=== PATIENT | female | born 1945 | race Caucasian/White ===

== ENCOUNTER → 2020-07-22 | Outpatient (CLI) | payer MEDICARE ==
[2016-01-28 08:41] VITALS: BP 151/72
[~2020-07-22] MED LIST: ACET325T9 PO; ACET500T68 PO; AMLO-186 PO; AMLO2.5T5 PO; BUPR150T11 PO; Bisacodyl PR; FAMO20TA5 PO; HYDR100E2 PR; HYDR12.58 PO; HYDR200T5 PO; IPRA3AMP29 NEB; L. R1CAP2 PO; LISI10TA16 PO; MAGN400T22 PO; MULT1TAB11 PO; OMEP40CA2 PO; ONDA4TAB10 SL; ONDA4TAB12 PO; ONDA4VIA56 IV; OXYB5TAB10 PO; OXYC1TAB15 PO; PRED5TAB19 PO; SERT-269 PO; SULF500T PO; [UNRECOGNIZED DRUG - CODE] IV; bupropion; hydrochlorothiazide; sertraline
--- NOTE | 2020-07-22 15:17 | RAD ---
INDICATION: Reason: EPIGASTRIC PAIN, HX OF OVARIAN AND ENDOMETRIAL CA / Spl. Instructions: / History : . COMPARISON: November 2015 TECHNIQUE: Axial CT images obtained through the abdomen and pelvis without contrast. One or more of the following individualized dose reduction techniques were utilized for this examinat ion: 1. Automated exposure control; 2. Adjustment of the mA and/or kV according to patient size; 3 . Use of iterative reconstruction technique. FINDINGS: Groundglass opacities at lung bases. Moderate hiatal hernia. Scattered calcific atherosclerosis. Postcholecystectomy changes without intrahepatic bile duct dilation. Fat-containing anterior abdominal wall hernia. Adjacent postoperative changes. No peripancreatic fluid collection. Spleen is prominent in size with lobulated appearance. Mild nodular thickening of a left adrenal gland measuring up to 7 mm. No left-sided hydronephrosis. Urinary bladder is decompressed with indistinctness of adjacent fat. No right-sided hydronephrosis. There is some prominence of the distal sigmoid wall. Colonic diverticulosis. Postoperative changes to the bowel with suture line. Degenerative changes the spine with scoliotic curvature and multilevel central canal and neural wyatt inal stenosis. Osseous demineralization. IMPRESSION: * Urinary bladder is decompressed with some prominence the wall indistinctness of adjacent fat. Coul d be from posttreatment changes but would correlate with symptoms to ensure that there is not a super imposed acute cause such as cystitis. * Mild groundglass opacities at lung bases could be secondary to atelectasis with other possible cau ses including infectious etiology or mild edema. * Mild prominence of the sigmoid colon wall. Could be posttreatment related. * Moderate hiatal hernia. Electronically signed by: Zackery Watts MD (07/22/2020 3:15 PM) [id number]
== END ==
LOC: CT 13:57
PROVIDERS: ATTEND Family Medicine
DX: K44.9 Diaphragmatic hernia without obstruction or gangrene (principal); K57.30 Diverticulosis of large intestine without perforation or abscess without bleeding; Z85.43 Personal history of malignant neoplasm of ovary
CPT/HCPCS: 74176

== ENCOUNTER → 2021-05-19 | Outpatient (CLI) | payer MEDICARE ==
[2016-01-28 08:41] VITALS: BP 151/72
[~2021-05-19] MED LIST changes: +IOHEXOL 240 MG/ML 50ML VIAL. ONE; +IOHEXOL 240 MG/ML 50ML VIAL. PO ONE; +IOHEXOL 300 MG/ML 75 ML VIAL. IV ONE
[2021-05-19 13:32] LABS: BASO % 1 % (0-3); EOS # 0.1 x10^3/uL (0.0-0.7); EOS % 1 % (0-3); HEMATOCRIT 38.2 % (36.0-47.0); HEMOGLOBIN 12.5 g/dL (12.0-15.5); LYMPH # 1.2 x10^3/uL (1.0-4.8); LYMPH % 20 % (24-48); MEAN CORPUSCULAR HEMOGLOBIN 30 pg (25-35); MEAN CORPUSCULAR HGB CONC 33 g/dL (31-37); MEAN CORPUSCULAR VOLUME 91 fL (79-100); MONO # 0.5 x10^3/uL (0.0-1.1); MONO % 9 % (0-9); NEUT # 4.3 x10^3uL (1.8-7.7); NEUT % 69 % (31-73); PLATELET COUNT 275 x10^3/uL (140-400); RED BLOOD COUNT 4.21 x10^6/uL (3.50-5.40); WHITE BLOOD COUNT 6.2 x10^3/uL (4.0-11.0)
[2021-05-19 13:48] LABS: ALBUMIN 3.8 g/dL (3.4-5.0); ALBUMIN/GLOBULIN RATIO 1.1 (1.0-1.7); CALCIUM 8.9 mg/dL (8.5-10.1); CREATININE 1.3 mg/dL (0.6-1.0); POTASSIUM 3.8 mmol/L (3.5-5.1); TOTAL BILIRUBIN 0.4 mg/dL (0.2-1.0); TOTAL PROTEIN 7.2 g/dL (6.4-8.2)
--- NOTE | 2021-05-19 17:04 | RAD ---
PQRS Compliance Statement: One or more of the following individualized dose reduction techniques were utilized for this examinat ion: 1. Automated exposure control 2. Adjustment of the mA and/or kV according to patient size 3. Use of iterative reconstruction technique CT ABDOMEN+PELVIS W Clinical Indication: Reason: VAGINAL BLEEDING, HX OF OVARIAN CA / Spl. Instructions: ORAL AND IV OMNI 300 60ML HX OF MALIGNANT NEOPLASM OF ENDOMETRIUM / History: Comparison: CT abdomen and pelvis without contrast July 22, 2020. Technique: Helical CT imaging of the abdomen and pelvis is performed after 60 cc of Omnipaque 300 IV contrast. Oral contrast also administered. Findings: Lung bases are clear. Cardiac size normal. Moderate-sized hiatal hernia. Cholecystectomy. There is a small fat-containing supraumbilical hernia with a wide neck, unchanged. T he anterior edge of the transverse colon is seen at the neck of the hernia. The liver, spleen, pancreas, adrenal glands, abdominal aorta, and kidneys are normal. There is no small bowel obstruction. Appendix is not seen, no secondary signs of appendicitis. There are scattered diverticula of the distal colon. No colon wall thickening is identified. Hysterectomy. Stable decompressed and thickened appearance of the urinary bladder. No pelvic free flu id. There is increased degenerative spondylosis of L1/L2. IMPRESSION: 1. Unchanged decompressed and thickened appearance of the urinary bladder. Considerations include po sttreatment changes or cystitis. 2. Moderate-sized hiatal hernia. 3. Distal colon diverticulosis. Electronically signed by: Jordan Mirza MD (05/19/2021 5:02 PM) [id number]
[2021-05-20 01:07] LABS: CA 125 6.5 U/mL (0.0-38.1)
[2021-05-20 13:53] LABS: FREE T4 2.32 ng/dL (0.76-1.46); THYROID STIM HORMONE (TSH) 2.328 uIU/mL (0.358-3.740)
== END ==
LOC: CT 12:39
PROVIDERS: ATTEND Surgery
DX: N93.9 Abnormal uterine and vaginal bleeding, unspecified (principal); K57.30 Diverticulosis of large intestine without perforation or abscess without bleeding; K44.9 Diaphragmatic hernia without obstruction or gangrene; K42.9 Umbilical hernia without obstruction or gangrene; M47.816 Spondylosis without myelopathy or radiculopathy, lumbar region; Z85.43 Personal history of malignant neoplasm of ovary; Z85.42 Personal history of malignant neoplasm of other parts of uterus; Z90.49 Acquired absence of other specified parts of digestive tract
CPT/HCPCS: 74177; 80053; 82378; 83690; 84439; 84443; 84480; 85025; 86301; 86304; Q9966; Q9967; 36415

== ENCOUNTER → 2021-06-22 | Outpatient (CLI) | payer MEDICARE ==
[2016-01-28 08:41] VITALS: BP 151/72
[~2021-06-22] MED LIST changes: -BUPR150T11 PO; +BUPR150T24 PO; -IOHEXOL 240 MG/ML 50ML VIAL. ONE; -IOHEXOL 240 MG/ML 50ML VIAL. PO ONE; -IOHEXOL 300 MG/ML 75 ML VIAL. IV ONE
--- NOTE | 2021-06-24 14:30 | RAD ---
INDICATION: 76 years of age asymptomatic female patient presents for screening mammography. History o f benign right breast biopsy in 2008. No personal or family history of breast cancer. TECHNIQUE: Full field craniocaudal and mediolateral oblique images of both breasts were obtained usi ng digital technique with tomosynthesis and also analyzed with computer-aided detection software. COMPARISON: Prior mammographic imaging dating back to 07/06/2016. BREAST COMPOSITION: Category B: There are scattered fibroglandular densities. FINDINGS: Similar circumscribed hypodense mass with adjacent biopsy clip in the upper outer quadrant, anterior depth. Additional scattered bilateral small circumscribed masses in both breasts appear stable from m ultiple priors. No suspicious masses, microcalcifications or architectural distortion is present to suggest malignanc y in either breast. The visualized axillae are unremarkable. IMPRESSION: No mammographic evidence of malignancy. RECOMMENDATION: Annual screening mammography is recommended, unless clinically indicated sooner based on symptoms or change in physical exam. BIRADS 2: BENIGN This study was interpreted with the benefit of Computerized Aided Detection (CAD). Patient information is entered into the reminder system with a target due date for the next screening mammogram. Mammography is the most sensitive method for finding small breast cancers, but it does not detect the m all and is not a substitute for careful clinical examination. A negative mammogram does not negate a clinically suspicious finding and should not result in delay in biopsying a clinically suspicious a bnormality. "Our facility is accredited by the [employer] Mammography Program." Electronically signed by: Leonel Hamilton DO (06/24/2021 2:28 PM) [id number]
== END ==
LOC: MAMMO 13:58
PROVIDERS: ATTEND Family Medicine
DX: Z12.31 Encounter for screening mammogram for malignant neoplasm of breast (principal)
CPT/HCPCS: 77063; 77067